=== PATIENT | male | born 1990 | race Caucasian/White ===

== ENCOUNTER 2023-01-17 19:51 | Emergency (ER) | payer OTHER, SELFPAY ==
--- NOTE | ~2023-01-17 | XR_ITS ---
EXAMINATION: XR FOREARM, RIGHT CLINICAL INFORMATION: Laceration. Question foreign body. COMPARISON: None available. TECHNIQUE: AP and lateral views of the right forearm were obtained. FINDINGS: Bone alignment is normal. No fracture or dislocation. Elbow and wrist joints are normal. Evidence of trauma to the soft tissues of the distal ulnar palmar forearm. On the AP view there is a 1 mm radiopaque density projecting over the soft tissues questionable for a soft tissue body. This is not seen on the lateral view. XR/XR forearm RT 2V IMPRESSION: Soft tissue trauma to the distal forearm. Question 1 mm radiopaque soft tissue foreign body seen on the AP view. This is not seen on the lateral view.
--- NOTE | 2023-01-17 19:56 | ED_ITS ---
HPI - General Adult General Chief complaint: Wound/Laceration Stated complaint: cut wrist Time Seen by Provider: 01/17/23 20:19 Source: patient Mode of arrival: ambulatory Limitations: no limitations History of Present Illness HPI narrative: Patient is a 32-year-old male presents emergency department for evaluation of a significant laceration to the right forearm that was reportedly sustained after being struck with the wooden handle of a broom. Bleeding is currently controlled with a clean dry dressing in place. He states he is able to move his fingers wrist and elbow without complication. He reports that his tetanus vaccine is up-to-date within the last 5 years. Denies numbness or tingling to the hand. Related Data Previous Rx's Medication Instructions Recorded cephalexin 500 mg capsule 500 mg PO QID #27 caps 01/18/23 Allergies Allergy/AdvReac Type Severity Reaction Status Date / Time amoxicillin Allergy Unknown Verified 01/17/23 19:57 Penicillins Allergy Unknown Verified 01/17/23 19:57 Review of Systems 2 Review of Systems: Yes all other systems are reviewed and are negative [facility] Past Medical History Attestation statement: The following information was validated with the patient. Source: old records reviewed Social History Social History Advance Directives: No Advance Directives Information Provided: No Physical Exam ED Vital Signs: Vital Signs - 24 hr 01/17/23 19:58 01/17/23 20:14 01/17/23 23:29 Temperature 98.3 F 98.8 F Pulse Rate 51 58 Respiratory Rate 16 17 18 Blood Pressure 99/49 L 107/68 Pulse Oximetry 99 99 Oxygen Delivery Method Room Air Room Air BMI result Body Mass Index 25.1 Appearance: Alert.?Oriented to person, place and time. No acute distress.?Normal affect. Neck: Normal inspection.? Neck supple.?? CVS: Heart sounds normal. Normal heart rate and rhythm.? Pulses normal.?? Respiratory: No respiratory distress.? Lung sounds clear to auscultation bilaterally??? Skin: Skin warm and dry.? Normal skin color.? Neuro: Moves all extremities spontaneously. Sensation intact bilaterally. No focal neuro deficits. Ambulates with normal steady gait. Course Course Course Narrative: RME- 32 year old male presents for evaluation of a right forearm laceration. Deep flap-like laceration to right forearm on a metal broom. No pulsatile bleeding. Paient is slightly hypotensive at 99/49. Tetanus is up to date Medications Administered Discontinued Medications Generic Name Dose Route Start Last Admin Trade Name Cintia PRN Reason Stop Dose Admin Cephalexin HCl 500 mg 01/18/23 00:42 01/18/23 01:02 Cephalexin 500 Mg Capsule PO 01/18/23 00:43 500 mg ONCE ONE Administration Lidocaine HCl 30 ml 01/17/23 22:09 01/17/23 22:48 Lidocaine Hcl 1 % Mpf 30 Ml Vial SUBCUT 01/17/23 22:10 30 ml ONCE ONE Administration Protocol Procedures Laceration Laceration 1: Site: upper extremity Side (If applicable): right Size (cm): 15 Description: flap Depth: involves muscle layer Local Anesthetic: lidocaine 1% Amount of anesthesia used (mL): 12 Pre-repair: wound explored, irrigated extensively and wound margins revised Skin layer closed with: nylon Size (cm): 4-0 Number of sutures: 20 Technique: other (Simple interrupted and vertical mattress) Muscle layer closed with: vicryl Size: 4-0 Number of sutures: 1 Technique: simple, interrupted Medical Decision Making Medical Decision Making MDM Narrative: Patient is a 32-year-old male presents emergency department for evaluation of laceration to the right forearm. The extremity is neurovascularly intact distally. She is able to he fully extend the digits, make a closed fist, supinate and pronate the forearm, full AROM to the wrist. 2+ radial/ulnar pulse bilaterally. XR reveals no acute osseous abnormality or fracture. Extensive irrigation and laceration repair as per procedure note. Tolerated procedure well. Received initial dosage of prophylactic antibiotics; cephalexin in the emergency department. His tetanus vaccine is already up-to-date by his account. Discussed worrisome signs and symptoms that would warrant re-evaluation in the emergency department. All questions answered. Stable for discharge. Differential Diagnosis Differential Diagnoses: The differential diagnosis associated with the presentation includes (Fracture, retained foreign body, neurovascular compromise, uncontrolled bleeding) Independent Interpretation I performed an independent interpretation of an: Plain X-Ray (A carotid XR imaging of the forearm and agree with radiologist impression) Radiology Impression Discussion of test interpretation with radiology: I have reviewed the radiologist's reading. Radiologist Impression: XR/XR forearm RT 2V IMPRESSION: Soft tissue trauma to the distal forearm. Question 1 mm radiopaque soft tissue foreign body seen on the AP view. This is not seen on the lateral view. Independent Historian Clinical information obtained from an independent historian. History obtained from or confirmed by: Friend (Present at bedside who confirms history) Prescription Management I considered prescription management with: Antibiotic Discharge Plan Discharge Clinical Impression: Laceration of forearm, complicated Qualifiers: Encounter type: initial encounter Laterality: right Qualified Code(s): S51.811A - Laceration without foreign body of right forearm, initial encounter Patient Disposition: Home, Self-Care Instructions: Care For Your Stitches (ED), Laceration (ED) Additional Instructions: Your sutures will need to be removed in 10 days; there are 20 sutures present. You may follow-up with your primary care provider or return back to the emergency department for removal. I have sent a prescription for antibiotic to your pharmacy to prevent infection. Please complete this entire course. If you develop increasing pain, swelling, redness, pus-like drainage, fevers, chills, inability to move your wrist/fingers, or any new or worsening symptoms or concerns then you should be re-evaluated right away. Prescriptions: New cephalexin 500 mg capsule 500 mg PO QID Qty: 27 0RF Referrals: Physician,Unknown J [Primary Care Provider] -
[2023-01-17 19:58] VITALS: BP 99/49; PULSE 51; RESP 16; TEMP 36.8; O2SAT 99; BMI 25.1
[2023-01-17 20:14] VITALS: BP 107/68; PULSE 58; RESP 17; TEMP 37.1; O2SAT 99
[2023-01-17] MEDS: Lidocaine HCl 1 % MPF 30 ML VIAL SUBCUT (22:48)
--- NOTE | 2023-01-17 23:09 | PC.NURSE ---
Provider at bedside for suture repair
[2023-01-17 23:29] VITALS: RESP 18
[2023-01-18] MEDS: cephALEXin 500 MG CAPSULE PO (01:02)
== END 2023-01-18 01:20 | disposition home or self-care (01) ==
PROVIDERS: Emergency Provider Student in an Organized Health Care Education/Training Program
DX: S51.811A Laceration without foreign body of right forearm, initial encounter (principal); M79.631 Pain in right forearm; W26.9XXA Contact with unspecified sharp object(s), initial encounter; Y93.9 Activity, unspecified; Y92.9 Unspecified place or not applicable; Y99.9 Unspecified external cause status
CPT/HCPCS: 12035; 73090; 99284